=== PATIENT | male | born 1960 | race Caucasian/White ===

== ENCOUNTER 2021-10-26 10:19 | Emergency (ER) | payer MEDICAID ==
[~2021-10-26] VITALS: Ht 172.7 cm; Wt 63.5 kg
--- NOTE | ~2021-10-26 | EMS ---
[address] [address] EMS Patient Care Report Name: [facility]RA HILL [id number] Admission: 10/26/21 Attend Phys: Discharge: Date of : 58 Report #: [id number] THIS REPORT FOR: //name// Report Transmitted: 10/26/2021 11:27 EMS Care Summary PUR[place] DELL Incident [id number] @ 10/26/2021 09:32 Incident Location [address] [place] [address] Patient TYRA HILL Male, 61 Years 1960 Patient Address [address] [facility] [address] [place] [address] Patient History Anemia, unspecified,Dysphagia,Hypertension (HTN),Cancer, Unspecified, Patient Allergies No known allergies, Patient Medications Oxycodone, Chief Complaint Constipation Disposition Transported No Lights/[place] Reason Sick Person Transported To [facility] Narrative Dispatched to address noted for rectal pain. [facility] en route and on scene at time noted. Arrived and spoke with the staff at the retirement. Patients staff stated that the patient has been crying out in pain all night even after his normal pain medication. Patient has a history of rectal cancer the staff [address] [address] EMS Patient Care Report Name: TYRA HILL Room: [facility]#: [id number] Admission: 10/26/21 Attend Phys: Discharge: Date of : 58 Report #: [id number] stated he normally does not complain of anything. Patient was found in his bed holding his lower abdomen and moaning in pain. Patient stated he was trying to see if it would go away for the last two day and not telling anyone. patient stated he normally has pain in his rectum with a history of cancer that is not currently present. patient requested the closest hospital that was not on high volume and was helped to stretcher via a stand and turn. patient was buckled in and taken to ambulance. (patient has a colostomy bag present with normal color and no blood noted in fecal matter.) Once in ambulance, vitals where taken at time noted with 4 lead ECG. IV was obtained as noted and fentanyl was given for pain. While en route, vitals where taken again with no major change. Pain was lowered by medication. radio report was given at time noted. Patient was given another dose of Fentanyl for pain. Arrived and took patient to room. Patient was moved over to bed and RN was given verbal report. RN signed for patient and patient care. patient was in too much pain to lift his hands up or point his finger. END REPORT EMT-P Lucas Olmedo Initial Vitals @10:08Pain: 06/29, @09:57Pain: 08/29, @:08SpO2: 100, @09:52P: 97,R: 16,BP: 142/81, @10:08P: 84,R: 16,BP: 115/64, @09:52GCS: 15, @10:08GCS: 15, @09:59 Assessments @09:46MENTAL:SKIN:HEENT:LUNG SOUNDS:ABDOMEN:PELVIS//GI:EXTREMITIES:PULSE:NEURO: Impression Acute abdomen Procedures @09:59 Fentanyl - 50.000 Micrograms (mcg) - Intravenous (IV) Response: Improved @10:14 Fentanyl - 50.000 Micrograms (mcg) - Intravenous (IV) Response: Improved @09:57 IV Therapy - cc () Site: Antecubital-Left Response: UnchangedSucceeded @09:57 IV Therapy - cc () Site: Antecubital-Left Response: UnchangedSucceeded Timeline 01:00,Call Received 08:49,Dispatch Notified 08:49,Psap Call 09:32,Dispatched 09:32,[place] [address] EMS Patient Care Report Name: HILLTYRA GERARD Room: [facility]#: [id number] Admission: 10/26/21 Attend Phys: Discharge: Date of : 58 Report #: [id number] 09:42,On Scene 09:46,At Patient 09:52,BP: 142/81 M,PULSE: 97,RR: 16 R,SPO2: Ox,ETCO2: ,BG: ,PAIN: ,GCS: , 09:52,BP: / M,PULSE: ,RR: R,SPO2: Ox,ETCO2: ,BG: ,PAIN: ,GCS: 15, 09:57,BP: / M,PULSE: ,RR: R,SPO2: Ox,ETCO2: ,BG: ,PAIN: 10,GCS: , 09:57,IV Therapy - cc Site: Antecubital-Left,Response: UnchangedSucceeded, 09:57,IV Therapy - cc Site: Antecubital-Left,Response: UnchangedSucceeded, 09:59,BP: / M,PULSE: ,RR: R,SPO2: Ox,ETCO2: ,BG: ,PAIN: ,GCS: , 09:59,Depart Scene 09:59,Fentanyl - 50.000 Micrograms (mcg) - Intravenous (IV),Response: Improved 10:08,BP: / M,PULSE: ,RR: R,SPO2: 100 Ox,ETCO2: ,BG: ,PAIN: ,GCS: , 10:08,BP: 115/64 M,PULSE: 84,RR: 16 R,SPO2: Ox,ETCO2: ,BG: ,PAIN: ,GCS: , 10:08,BP: / M,PULSE: ,RR: R,SPO2: Ox,ETCO2: ,BG: ,PAIN: ,GCS: 15, 10:08,BP: / M,PULSE: ,RR: R,SPO2: Ox,ETCO2: ,BG: ,PAIN: 8,GCS: , 10:14,Fentanyl - 50.000 Micrograms (mcg) - Intravenous (IV),Response: Improved 10:16,At Destination 10:25,Call Closed Disclaimer [email or web address] Copyright 2020 [employer] This EMS Care Summary contains data elements from the applicable legal record (which may be displayed differently). It is designed to provide pertinent information for the following purposes: continuity of care, clinical quality, and state data reporting. The complete legal record is available to ED staff and administrators of the receiving hospital in [place] Patient Tracker. All data is provided "as is."
[2021-10-26] MEDS ORDERED: CELEBREX 200 M200 MG PO (11:00)
[2021-10-26] MEDS ORDERED: FLEXERIL PO (11:01)
[2021-10-26] MEDS ORDERED: OXYCODONE PO (11:18)
[2021-10-26] MEDS ORDERED: HYDROCORTISONE-57 GM TOP (11:25)
[2021-10-26] MEDS ORDERED: NEURONTIN 300M300 M2 PO ×2 (11:25→14:00)
[2021-10-26] MEDS ORDERED: BENTYL 10 MG CA10 MG PO (11:25)
[2021-10-26] MEDS ORDERED: MIRALAX119 GM PO (11:35)
[2021-10-26] MEDS ORDERED: ANUCORT-HC25 MG RECTAL (11:35)
[2021-10-26] MEDS ORDERED: REMERON30 MG PO (11:35)
[2021-10-26 11:36] LABS: ABSOLUTE EOSINOPHILS 0.1 thou/uL (0.0-0.7); ABSOLUTE LYMPHOCYTES 0.5 thou/uL (0.8-5.3); ABSOLUTE MONOCYTES 0.3 thou/uL (0.0-1.2); ABSOLUTE NEUTROPHILS 2.4 thou/uL (1.6-8.1); BASOPHILS 0.5 %; EOSINOPHILS 3.2 %; HEMATOCRIT 36.3 % (42.0-52.0); HEMOGLOBIN 12.3 gm/dL (14.0-18.0); LYMPHOCYTES 13.7 %; MCH 31.4 pg (26.0-34.0); MCHC 33.9 g/dL (28.0-37.0); MCV 92.6 fL (80.0-100.0); MONOCYTES 8.2 %; MPV 7.4 fl. (7.2-11.1); NUCLEATED RBCS 0 /100WBC; PLATELET COUNT* 198 thou/uL (150-400); POLYS 74.4 %; RBC 3.92 mil/uL (4.50-6.00); RDW-CV 13.7 % (10.5-14.5); WBC 3.3 thou/uL (4.0-11.0)
[2021-10-26] MEDS ORDERED: SENNA PLUS TAB1 EACH PO (11:36)
[2021-10-26] MEDS ORDERED: THERA-M CAPLET1 EAC2 PO (11:36)
[2021-10-26 11:47] LABS: CALCIUM 9.4 mg/dL (8.5-10.1); CREATININE 0.6 mg/dL (0.6-1.3); POTASSIUM 3.6 mmol/L (3.5-5.1)
[2021-10-26 11:51] LABS: ALBUMIN 3.7 g/dL (3.4-5.0); TOTAL BILIRUBIN 0.4 mg/dL (<0.1-1.0); TOTAL PROTEIN 7.2 g/dL (6.4-8.2)
[2021-10-26 11:58] LABS: URINE BILIRUBIN NEGATIVE (Negative); URINE BLOOD NEGATIVE (Negative); URINE CLARITY CLEAR; URINE COLOR YELLOW; URINE GLUCOSE-RANDOM NEGATIVE (Negative); URINE KETONES NEGATIVE (Negative); URINE LEUKOCYTES-REFLEX NEGATIVE (Negative); URINE NITRITE-REFLEX NEGATIVE (Negative); URINE PROTEIN NEGATIVE (Negative); URINE SPECIFIC GRAVITY 1.015 (1.005-1.030); URINE UROBILINOGEN 0.2 E.U./dl (0.2-1.0)
--- NOTE | 2021-10-26 12:27 | EKG ---
[place] [address] ELECTROCARDIOGRAM REPORT Name: TYRA HILL Room: [facility]#: [id number] Admission: 10/26/21 Attend Phys: Discharge: Date of : 58 Date of Service: 10/26/21 1102 Report #: [id number] THIS REPORT FOR: //name// [facility] ED Test Date: 2021-10-26 Test Time: 11:02:19 Pat Name: TYRA HILL Department: Room: Gender: Preforms Laminator: [facility] : 1960 Requested By: Gayle Menchaca Order Number: [id number] MD: Alli Resendiz Measurements Intervals [place] Rate: 77 P: -28 AR: 152 QRS: -13 QRSD: 122 T: 71 QT: 400 QTc: 453 Interpretive Statements Sinus rhythm Nonspecific intraventricular conduction delay septal infarct, age indeterminate No previous ECG available for comparison Electronically Signed On 10-26-2021 12:27:08 [employer] by Alli Resendiz [email or web address] <ELECTRONICALLY SIGNED> By: Alli Resendiz MD, [facility] 10/26/21 1227 01 01 Alli Resendiz MD, [facility] /EPI
[2021-10-26 14:51] VITALS: BP 123/68
== END 2021-10-26 14:52 ==
LOC: M.ERS 10:19
PROVIDERS: Nurse Practitioner Family
DX: K52.9 Noninfective gastroenteritis and colitis, unspecified (principal); R10.32 Left lower quadrant pain; F32.9 Major depressive disorder, single episode, unspecified; Z79.899 Other long term (current) drug therapy